=== PATIENT | female | born 1990 | race African-American/Black ===

== ENCOUNTER 2018-03-15 20:33 | Emergency (ER) | END 2018-03-15 22:34 | disposition home or self-care (01) ==

== ENCOUNTER 2018-10-20 13:37 | Emergency (ER) | payer OTHER ==
[~2018-10-20] VITALS: Ht 175.3 cm; Wt 81.7 kg
[~2018-10-20 13:37] MED LIST: ACET1TAB40 PO; ACET500C5 PO; ACYC400T2 PO; CEPH-443 PO; IBUP-1542 PO; NITR-58 PO; PHEN-538 PO; PRED20TA PO; PRENAT PO; TRAM50TA2 PO
[2018-10-20 13:38] VITALS: BP 107/69; PULSE 77; RESP 14; Ht 175.3 cm; Wt 81.7 kg
--- NOTE | 2018-10-20 16:14 | ERD ---
ER Documentation Chief Complaint Chief Complaint LEFT FOOT 1ST TOE PAIN [id number] S/P STEPPING ON SOMETHING POSS. FB HPI 27-year-old female, without significant medical history, presents to the emergency department, complaining of 2 weeks with persistent foreign body sensation on the left great toe. No fever, no chills, no direct trauma. No local erythema or fluctuance. The patient has attempted to remove the possible FB by herself. ROS All systems reviewed and are negative except as per history of present illness. Medications Home Meds Active Scripts Ibuprofen* (Motrin*) 600 Mg Tab, 600 MG PO Q6, #30 TAB Prov:BLANCA TROTTER PA-C 03/15/18 Acetaminophen-Codeine* (Acetaminophen-Cod #3*) 300-30 Mg Tab, 1 TAB PO Q4H PRN for PAIN, #10 TAB Prov:DAMIAN CAMPBELL MD 12/24/15 Phenazopyridine Hcl* (Pyridium*) 200 Mg Tab, 200 MG PO TID, #6 TAB Prov:DAMIAN CAMPBELL MD 12/24/15 Cephalexin* (Keflex*) 500 Mg Capsule, 500 MG PO QID for 5 Days, CAP Prov:DAMIAN CAMPBELL MD 12/24/15 Acetaminophen* (Tylophen*) 500 Mg Capsule, 1 CAP PO Q6H PRN for PAIN AND OR ELEVATED TEMP, #30 CAP Prov:MATT VILLALTA PA-C 10/12/15 Cephalexin* (Keflex*) 500 Mg Capsule, 500 MG PO QID for 7 Days, CAP Prov:MATT VILLALTA PA-C 10/12/15 Tramadol HCl (Tramadol HCl) 50 Mg Tab, 50 MG PO Q6H PRN for PAIN, #14 TAB Prov:FRANKY GREENE PA-C 07/08/15 Prednisone (Prednisone) 20 Mg Tab, 20 MG PO BID for 5 Days, TAB Prov:FRANKY GREENE PA-C 07/08/15 Acyclovir* (Acyclovir*) 400 Mg Tablet, 400 MG PO TID, #10 TAB Prov:FRANKY GREENE PA-C 07/08/15 Reported Medications Nitrofurantoin Monohyd Macrocr (Macrobid) 100 Mg Capsr, 100 MG PO BID, CAP 02/19/15 Multivit/Min/Fol Ac/Iron/Pren* ( S*) 1 Tab Tab, 1 TAB PO DAILY, TAB 01/16/15 Allergies Allergies: Coded Allergies: No Known Allergies (Verified Allergy, Unknown, 01/16/15) PMhx/Soc History of Surgery: No Anesthesia Reaction: No Hx Neurological Disorder: No Hx Respiratory Disorders: No Hx Cardiac Disorders: No Hx Psychiatric Problems: No Hx Miscellaneous Medical Probl: No Hx Alcohol Use: No Hx Substance Use: No Hx Tobacco Use: No Physical Exam Vitals Vital Signs Date Temp Pulse Resp B/P (MAP) Pulse Ox O2 O2 Flow FiO2 Time Delivery Rate 10/20/18 98.9 77 14 107/69 100 13:38 (82) Physical Exam Const: No acute distress Head: Atraumatic Eyes: Normal Conjunctiva ENT: Normal External Ears, Nose and Mouth. Neck: Full range of motion. No meningismus. Resp: Clear to auscultation bilaterally Cardio: Regular rate and rhythm, no murmurs Abd: Soft, non tender, non distended. Normal bowel sounds Skin: No petechiae or rashes Back: No midline or flank tenderness Ext: No cyanosis, or edema Left great toe: Small, clean, dry ulcer in the plantar aspect. No evidence of infection, no foreign body seen. Neur: Awake and alert Psych: Normal Mood and Affect Procedures/MDM During the visit, the patient was evaluated for other possible injuries including fracture, nerve/tendon/ ligament damage, no signs of acute local infection, less likely systemic infectious process. At this time, no evidence of foreign body, no signs of infection. ER return precautions including infection, worsening of pain were discussed with patient. Follow-up in the next 2 days with the primary care provider. Disclaimer: Inadvertent spelling and grammatical errors are likely due to EHR/dictation software use and do not reflect on the overall quality of patient care. Also, please note that the electronic time recorded on this note does not necessarily reflect the actual time of the patient encounter. Departure Diagnosis: Primary Impression: Skin foreign body Condition: Stable Additional Instructions: Thank you very much for allowing us to participate in your care. Your health and safety is our top priority at [facility]. Call your primary care doctor TOMORROW for an appointment during the next 2-4 days and bring all the information and medications prescribed. Have prescriptions filled and follow precisely the directions on the label. If the symptoms get worse and your provider is unavailable, return to the Emergency Department immediately. LORENE MANCIA MD Oct 20, 2018 16:14
== END 2018-10-20 16:55 | disposition left against medical advice (07) ==
LOC: FTE 13:37
DX: Z18.89 Other specified retained foreign body fragments (principal)
CPT/HCPCS: 99282

== ENCOUNTER 2019-02-25 08:55 | Emergency (ER) | payer OTHER ==
[~2019-02-25] VITALS: Ht 175.3 cm; Wt 82.4 kg
[2019-02-25 09:08] VITALS: PULSE 63; RESP 18; Ht 175.3 cm; Wt 82.4 kg
--- NOTE | 2019-02-25 10:46 | ERD ---
ER Documentation Chief Complaint Chief Complaint STD CHECK WANTS TO BE CHECKED FOR HERPES HPI History of Present Illness: 28-year-old female with no past medical history coming in today with a desire to be checked for herpes. Patient reports that she has been in a monogamous relationship with her partner for 9 months, in which she was just informed this week he has herpes. Patient's partner reports to her that he has not had an outbreak in approximately 1.5 years. Partner is not currently have an outbreak but confided in patient and finally told her that he does have the virus. Patient denies any painful areas of her genitalia, or suspicious lesions. Patient denies dysuria. Patient recently was treated for bacterial vaginosis and desires to be rechecked to make sure that the infection is no longer present. Patient reports recent STD testing with her other provider. Denies any other needs for further testing was as per her At home pharmacological/nonpharmacological treatment for symptoms: Denies Denies social concerns; Denies recent foreign travel ROS All systems reviewed and are negative except as per history of present illness. Medications Home Meds Active Scripts Ondansetron (Ondansetron Odt) 4 Mg Tab.rapdis, 4 MG PO Q12 PRN for NAUSEA AND/OR VOMITING, #20 TAB Prov:MICHELLE GARRISON NP 02/25/19 Fluconazole* (Diflucan*) 150 Mg Tablet, 150 MG PO ONCE for YEAST INFECTION, #2 TAB 1 Refill Due to high likelihood of yeast infection with metronidazole treatment, prescription for yeast infection. Take 1 dose on day 1, and repeat on day 3. Prov:MICHELLE GARRISON NP 02/25/19 Metronidazole* (Metrogel* Vaginal) 0.75% -70 Gram Gel.w.appl, 1 APPFUL VAG HS for RECURRENT BACTERIAL VAGINOSIS for 16 Days, TUB Due to recurrences of bacterial vaginosis, take this medication twice a week. Typical treatment is for 4 to 6 months. This prescription is for 2 months. Use this medication twice weekly: preferably Sundays and Monday. Start this medication after completing 1 week course of metronidazole pills. Prov:MICHELLE GARRISON NP 02/25/19 Clindamycin* (Clindamycin* Topical) 2% - 40 Gm Cream.appl, 1 APPFUL VAG HS for BACTERIAL VAGINOSIS for 7 Days, EA Prov:MICHELLE GARRISON NP 02/25/19 Metronidazole* (Flagyl*) 500 Mg Tablet, 500 MG PO BID for BACTERIAL VAGINOSIS for 7 Days, TAB Prov:MICHELLE GARRISON NP 02/25/19 Ibuprofen* (Motrin*) 600 Mg Tab, 600 MG PO Q6, #30 TAB Prov:BLANCA TROTTERC 03/15/18 Acetaminophen-Codeine* (Acetaminophen-Cod #3*) 300-30 Mg Tab, 1 TAB PO Q4H PRN for PAIN, #10 TAB Prov:DAMIAN CAMPBELL MD 12/24/15 Phenazopyridine Hcl* (Pyridium*) 200 Mg Tab, 200 MG PO TID, #6 TAB Prov:DAMIAN CAMPBELL MD 12/24/15 Cephalexin* (Keflex*) 500 Mg Capsule, 500 MG PO QID for 5 Days, CAP Prov:DAMIAN CAMPBELL MD 12/24/15 Acetaminophen* (Tylophen*) 500 Mg Capsule, 1 CAP PO Q6H PRN for PAIN AND OR ELEVATED TEMP, #30 CAP Prov:MATT VILLALTAC 10/12/15 Cephalexin* (Keflex*) 500 Mg Capsule, 500 MG PO QID for 7 Days, CAP Prov:MATT VILLALTAC 10/12/15 Tramadol HCl (Tramadol HCl) 50 Mg Tab, 50 MG PO Q6H PRN for PAIN, #14 TAB Prov:FRANKY GREENE PA-C 07/08/15 Prednisone (Prednisone) 20 Mg Tab, 20 MG PO BID for 5 Days, TAB Prov:FRANKY GREENE PA-C 07/08/15 Acyclovir* (Acyclovir*) 400 Mg Tablet, 400 MG PO TID, #10 TAB Prov:FRANKY GREENE PA-C 07/08/15 Reported Medications Nitrofurantoin Monohyd Macrocr (Macrobid) 100 Mg Capsr, 100 MG PO BID, CAP 02/19/15 Multivit/Min/Fol Ac/Iron/Pren* ( S*) 1 Tab Tab, 1 TAB PO DAILY, TAB 01/16/15 Allergies Allergies: Coded Allergies: No Known Allergies (Verified Allergy, Unknown, 01/16/15) PMhx/Soc History of Surgery: No Anesthesia Reaction: No Hx Neurological Disorder: No Hx Respiratory Disorders: No Hx Cardiac Disorders: No Hx Psychiatric Problems: No Hx Miscellaneous Medical Probl: No Hx Alcohol Use: No Hx Substance Use: No Hx Tobacco Use: No FmHx Family History: No diabetes, No coronary disease Physical Exam Vitals Vital Signs Date Temp Pulse Resp B/P (MAP) Pulse Ox O2 O2 Flow FiO2 Time Delivery Rate 02/25/19 98.5 63 18 99 09:08 Physical Exam Const: No acute distress Head: Atraumatic Eyes: Normal Conjunctiva ENT: Normal External Ears, Nose and Mouth. Neck: Full range of motion. No meningismus. Resp: Clear to auscultation bilaterally Cardio: Regular rate and rhythm, no murmurs Abd: Soft, non tender, non distended. Normal bowel sounds Skin: No petechiae or rashes Back: No midline or flank tenderness Ext: No cyanosis, or edema Neur: Awake and alert Psych: Normal Mood and Affect : No vesicular lesions noted to labia or genitalia, 1 red papule noted to left labia, nontender Procedures/MDM ED course includes a thorough examination and history. Medications: -- Imaging: -- Labs: HSV 1/2 blood, HSV culture, urogenital wet mount Low suspicion for life-threatening medical emergency. Low suspicion for acute abdominal or gynecological or genitourinary emergency that requires hospitalization or immediate surgical intervention. Otherwise healthy patient presenting with constellation of symptoms likely representing recurrent bacterial vaginosis/exposure to herpes as characterized by history, physical exam findings, lab findings. Urogenital wet. Herpes culture and serum tests are pending. Patient exam findings are not consistent with a HSV-2 outbreak. No acyclovir treatment at this time. Patient reassessment: No respiratory distress, otherwise relatively well appearing and nontoxic. Patient verbalizes understanding of plan of care for BV treatment. Questions answered regarding herpes education and results. Patient educated on diagnoses, prescriptions, follow-up care, return precautions. Strict return precautions given for worsening condition; questions answered discharge. Disposition for discharge with followup in 3 days with PCP/clinic for any changes in condition; follow-up with [facility] recommended in 1 month for test of cure for bacterial vaginosis after treatments given during ER visit.. Departure Diagnosis: Primary Impression: Exposure to herpes simplex virus (HSV) Additional Impression: Bacterial vaginosis Condition: Stable MICHELLE GARRISON NP February 25, 2019 10:46
[2019-02-25] MEDS ORDERED: METR70GE15 VAG (11:30)
[2019-02-25] MEDS ORDERED: FLUC150T PO (11:30)
[2019-02-25] MEDS ORDERED: METR500T PO (11:30)
[2019-02-25] MEDS ORDERED: CLIN40CR VAG (11:30)
[2019-02-25] MEDS ORDERED: ONDA4TAB14 PO (11:37)
--- NOTE | 2019-02-27 21:19 | EN ---
Date/Time of Note Date/Time of Note DATE: 02/27/19 TIME: 21:19 ER Progress Note Spoke to patient by phone to update her on status of HSV 1/HSV-2 results. Patient verbalizes understanding of positive confirmation of herpes simplex virus. Patient verbalizes understanding of following up with her primary care doctor with the next available appointment to discuss plan of care. MICHELLE GARRISON NP February 27, 2019 21:19
== END 2019-02-25 11:41 | disposition home or self-care (01) ==
LOC: FTE 08:55
DX: N76.0 Acute vaginitis (principal); Z20.828 Contact with and (suspected) exposure to other viral communicable diseases
CPT/HCPCS: 36415; 86692; 87210; 87255; Z7502; 99283

== ENCOUNTER 2019-05-17 08:36 | Emergency (ER) | payer OTHER ==
[~2019-05-17] VITALS: Ht 175.3 cm; Wt 81.5 kg
[~2019-05-17 08:36] MED LIST changes: +CLIN40CR VAG; +FLUC150T PO; +METR500T PO; +METR70GE15 VAG; +ONDA4TAB14 PO; +SULF1TAB31 PO
[2019-05-17 08:46] VITALS: BP 108/61; PULSE 82; RESP 20; Ht 175.3 cm; Wt 81.5 kg
[2019-05-17] MEDS ORDERED: TRIMETHOPRIM/SULFAMETHOX (DS) TAB PO ONE (09:30)
[2019-05-17] MEDS ORDERED: IBUPROFEN 600 MG TAB PO ONE (09:30)
--- NOTE | 2019-05-17 10:03 | ERD ---
ER Documentation Chief Complaint Chief Complaint c/o "ingrown hair" in private area, causing pain HPI 28-year-old female presents for evaluation of ingrown hair to left labia x3 weeks. States to have shaved approximately 3 weeks ago noticed a small pimple at that time was not causing her pain. Patient noticed last few days the lesion has grown, become more red and hard, causing her significant pain which she rates as a 6 or 7 out of 10. Patient has not taken any medication for the pain, has not applied warm compresses to the lesion prior to arrival. Denies fevers but admits to feeling chills yesterday. No discharge from the lesion. She denies any history of DM, CVA, or autoimmunity. Denies drugs, alcohol, tobacco, IVDA. ROS All systems reviewed and are negative except as per history of present illness. Medications Home Meds Active Scripts Cephalexin* (Keflex*) 500 Mg Capsule, 500 MG PO QID for 7 Days, #28 CAP Prov:WEN OROPEZA PA-C 05/17/19 Sulfamethoxazole/Trimethoprim* (Bactrim Ds* Tablet) 1 Each Tablet, 1 TAB PO BID, #14 TAB Prov:WEN OROPEZA PA-C 05/17/19 Ondansetron (Ondansetron Odt) 4 Mg Tab.rapdis, 4 MG PO Q12 PRN for NAUSEA AND/OR VOMITING, #20 TAB Prov:MICHELLE GARRISON NP 02/25/19 Fluconazole* (Diflucan*) 150 Mg Tablet, 150 MG PO ONCE for YEAST INFECTION, #2 TAB 1 Refill Due to high likelihood of yeast infection with metronidazole treatment, prescription for yeast infection. Take 1 dose on day 1, and repeat on day 3. Prov:MICHELLE GARRISON NP 02/25/19 Metronidazole* (Metrogel* Vaginal) 0.75% -70 Gram Gel.w.appl, 1 APPFUL VAG HS for RECURRENT BACTERIAL VAGINOSIS for 16 Days, TUB Due to recurrences of bacterial vaginosis, take this medication twice a week. Typical treatment is for 4 to 6 months. This prescription is for 2 months. Use this medication twice weekly: preferably Sundays and Monday. Start this medication after completing 1 week course of metronidazole pills. Prov:MICHELLE GARRISON NP 5/6/19 Clindamycin* (Clindamycin* Topical) 2% - 40 Gm Cream.appl, 1 APPFUL VAG HS for BACTERIAL VAGINOSIS for 7 Days, EA Prov:MICHELLE GARRISON V ALPINE GUIDE 02/25/19 Metronidazole* (Flagyl*) 500 Mg Tablet, 500 MG PO BID for BACTERIAL VAGINOSIS for 7 Days, TAB Prov:MICHELLE GARRISON V ALPINE GUIDE 02/25/19 Ibuprofen* (Motrin*) 600 Mg Tab, 600 MG PO Q6, #30 TAB Prov:BLANCA TROTTER PA-C 03/15/18 Acetaminophen-Codeine* (Acetaminophen-Cod #3*) 300-30 Mg Tab, 1 TAB PO Q4H PRN for PAIN, #10 TAB Prov:DAMIAN CAMPBELL MD 12/24/15 Phenazopyridine Hcl* (Pyridium*) 200 Mg Tab, 200 MG PO TID, #6 TAB Prov:DAMIAN CAMPBELL MD 12/24/15 Cephalexin* (Keflex*) 500 Mg Capsule, 500 MG PO QID for 5 Days, CAP Prov:DAMIAN CAMPBELL MD 12/24/15 Acetaminophen* (Tylophen*) 500 Mg Capsule, 1 CAP PO Q6H PRN for PAIN AND OR ELEVATED TEMP, #30 CAP Prov:MATT VILLALTA PA-C 10/12/15 Cephalexin* (Keflex*) 500 Mg Capsule, 500 MG PO QID for 7 Days, CAP Prov:MATT VILLALTA PA-C 10/12/15 Tramadol HCl (Tramadol HCl) 50 Mg Tab, 50 MG PO Q6H PRN for PAIN, #14 TAB Prov:FRANYK GREENE PA-C 07/08/15 Prednisone (Prednisone) 20 Mg Tab, 20 MG PO BID for 5 Days, TAB Prov:FRANKY GREENE PA-C 07/08/15 Acyclovir* (Acyclovir*) 400 Mg Tablet, 400 MG PO TID, #10 TAB Prov:FRANKY GREENE PA-C 07/08/15 Reported Medications Nitrofurantoin Monohyd Macrocr (Macrobid) 100 Mg Capsr, 100 MG PO BID, CAP 02/19/15 Multivit/Min/Fol Ac/Iron/Pren* ( S*) 1 Tab Tab, 1 TAB PO DAILY, TAB 01/16/15 Allergies Allergies: Coded Allergies: No Known Allergies (Verified Allergy, Unknown, 01/16/15) PMhx/Soc Medical and Surgical Hx: pt denies Medical Hx, pt denies Surgical Hx History of Surgery: No Anesthesia Reaction: No Hx Neurological Disorder: No Hx Respiratory Disorders: No Hx Cardiac Disorders: No Hx Psychiatric Problems: No Hx Miscellaneous Medical Probl: No Hx Alcohol Use: No Hx Substance Use: No Hx Tobacco Use: No Smoking Status: Never smoker FmHx Family History: No diabetes, No coronary disease, No other Physical Exam Vitals Vital Signs Date Temp Pulse Resp B/P (MAP) Pulse Ox O2 O2 Flow FiO2 Time Delivery Rate 05/17/19 98.1 82 20 108/61 98 08:46 (77) Physical Exam Const: No acute distress Head: Atraumatic Eyes: Normal Conjunctiva ENT: Normal External Ears, Nose and Mouth. Neck: Full range of motion. No meningismus. Resp: Clear to auscultation bilaterally Cardio: Regular rate and rhythm, no murmurs Abd: Soft, non tender, non distended. Normal bowel sounds Skin: No petechiae or rashes. One 3 cm x 3 cm indurated lesion to the right labia majora, no fluctuance, no discharge. Lesion is warm and tender to touch. No excoriations, no linear streaking. Back: No midline or flank tenderness Ext: No cyanosis, or edema Neur: Awake and alert Psych: Normal Mood and Affect Results 24 hrs Current Medications Medications Dose Sig/Kali Start Time Status Last (Trade) Ordered Route PRN Stop Time Admin Dose Reason Admin 1 tab ONCE ONCE 05/17/19 DC 05/17/19 Trimethoprim/ PO 09:30 09:26 05/17/19 09:31 Sulfamethoxaz ole (Bactrim (Ds)) Ibuprofen 600 mg ONCE ONCE 05/17/19 DC 05/17/19 (Motrin) PO 09:30 09:26 05/17/19 09:31 Procedures/MDM MDM: Patient presents with 3cm by 3 cm erythematous, indurated lesion to the right labia majora, consistent with an abscess. Erythema is localized. Given induration with no fluctuance, abscess is not appropriate for I&D at this time. I have prescribed the pt Bactrim and Kelfex and have counseled regarding use of warm compresses to the area. Pt advised to return to the ED within the next 24- 48 hrs for I&D should symptoms persist. Pt is afebrile, VSS, and no hx of IVDA or chronic medical conditions. At this time I have low suspicion for NV compromise and SEPSIS. Patient is stable for discharge home and outpatient management at this time, advised to follow-up with PCP in 1-2 days. Strict return precautions discussed. Departure Diagnosis: Primary Impression: Abscess Condition: Stable Patient Instructions: Abscess, Antiobiotic Treatment Only Additional Instructions: You were seen today for an abscess. Your abscess is not yet ready to be drained at this time so you will be started on antibiotics known as Bactrim and Keflex. Please take these medications as prescribed and apply warm compresses to the abscess for 20 min at a time multiple times throughout the day. If the abscess remains or fails to rupture on it's own for longer than 24-48hrs, please return to the ED for incision and drainage. Please also return if you begin to develop fevers, chills, shortness of breath, or sweats as this can indicate signs of infection. WEN OROPEZA PA-C May 17, 2019 10:03
== END 2019-05-17 10:08 | disposition home or self-care (01) ==
LOC: FTE 08:36
DX: N76.4 Abscess of vulva (principal)
CPT/HCPCS: Z7502; Z7610; 99283